=== PATIENT | female | born 1970 | race Caucasian/White ===

== ENCOUNTER 2020-03-19 16:51 | Observation (INO) | payer OTHER, SELFPAY ==
[2020-03-19] VITALS (13 sets, daily range): BP systolic 99–139; BP diastolic 66–88; PULSE 72–98; RESP 15–18; TEMP 36.4–37.1; O2SAT 98–100; BMI 24.3
--- NOTE | ~2020-03-19 | XR_ITS ---
EXAMINATION: XR chest 1V portable DATE: 03/19/2020 17:30 INDICATION: Shortness of breath. Left-sided chest pressure. TECHNIQUE: frontal view of the chest was obtained. COMPARISON: None FINDINGS: The lungs are clear with no focal airspace opacities, pulmonary edema, pleural effusion or pneumothor ax. The cardiomediastinal silhouette is normal. Mild thoracic dextrocurvature. IMPRESSION: 1. No acute cardiopulmonary disease. Reviewed, dictated and finalized at location A.
--- NOTE | 2020-03-19 16:53 | ECG_ITS ---
Measurements Intervals [place] Rate: 88 P: 49 [place]: 126 QRS: 9 QRSD: 82 T: 38 QT: 348 QTc: 423 Interpretive Statements SINUS RHYTHM RSR' IN V1 OR V2, CONSIDER RIGHT VENTRICULAR HYPERTROPHY OR RIGHT VCD LOW QRS VOLTAGE IN PRECORDIAL LEADS BASELINE ARTIFACT- I, III, AVR, AVL, AVF, V1 BORDERLINE ECG Electronically Signed On 03-19-2020 17:23:24 CDT by Markus Figueroa D.O.
--- NOTE | 2020-03-19 17:03 | ED.CHESTPAIN ---
HPI - Chest Pain General Chief Complaint: Chest Pain <Nicholas Aguirre PA-C - Last Filed: 03/19/20 20:02> Stated Complaint: sob, cp <Nicholas Aguirre PA-C - Last Filed: 03/19/20 20:02> Time Seen by Provider: 03/19/20 16:52 <Nicholas Aguirre PA-C - Last Filed: 03/19/20 20:02> Source: patient and family <Nicholas Aguirre PA-C - Last Filed: 03/19/20 20:02> Mode of arrival: ambulatory <Nicholas Aguirre PA-C - Last Filed: 03/19/20 20:02> Limitations: no limitations <Nicholas Aguirre PA-C - Last Filed: 03/19/20 20:02> History of Present Illness HPI narrative: Patient is a 50-year-old female who presents with 1 month of worsening exertional dyspnea patient notes over the last several days her symptoms have worsened feeling fatigued when going short distances and upstairs patient also notes for the last 2 hours having developed some left-sided chest heaviness. Patient denies similar occurrence in the past presents per private vehicle. Patient denies any current pain has not taken anything for her symptoms. Patient denies any recent illness URI symptoms. On arrival patient in the room in no distress <Nicholas Aguirre PA-C - Last Filed: 03/19/20 20:02> Related Data Home Medications: Home Medications Medication Instructions Recorded Confirmed amitriptyline 10 mg PO HS 03/19/20 <Nicholas Aguirre PA-C - Last Filed: 03/19/20 20:02> Allergies/Adverse Reactions: Allergies Allergy/AdvReac Type Severity Reaction Status Date / Time No Known Allergies Allergy Unverified 03/19/20 17:00 <Nicholas Aguirre PA-C - Last Filed: 03/19/20 20:02> Review of Systems Review of Systems: All systems reviewed & are unremarkable except as noted in HPI and below <Nicholas Aguirre PA-C - Last Filed: 03/19/20 20:02> PMFSH Past Medical History Medical History: Medical History (Updated 03/19/20 @ 20:02 by Nicholas Aguirre PA-C) Depression <Nicholas Aguirre PA-C - Last Filed: 06/19/20 20:02> Family History Family History: Family History Father Hypertension Cerebrovascular accident Family history of diabetes mellitus in first degree relative Family history of dementia Family history of coronary artery disease Mother Family history of coronary artery disease Other Diabetes mellitus Family history of arthritis <Nicholas Aguirre PA-C - Last Filed: 03/19/20 20:02> Social History Social History: Social History Smoking status: Never smoker Alcohol intake: never Gender identity (if verbalized by the patient): Female <Nicholas Aguirre PA-C - Last Filed: 03/19/20 20:02> Exam Narrative: Exam Narrative: GENERAL: Well-appearing, well-nourished, and in no acute distress. HEAD: Normocephalic, atraumatic. EYES: PERRLA and EOMI. ENT: Nares clear, no rhinorrhea or epistaxis. Mucous membranes moist. CHEST: Clear to auscultation. No respiratory distress. No wheezes rales or rhonchi HEART: Regular rate and rhythm. No murmur heard. Normal peripheral pulses. ABDOMEN: Soft, nontender, nondistended. EXTREMITIES: Normal range of motion. No edema. SKIN: Warm, dry, no rash. NEURO: No focal deficits. Alert and oriented x3. PSYCH: Normal mood and affect. <Nicholas Aguirre PA-C - Last Filed: 03/19/20 20:02> Course Course Emergency Course: For this encounter, I have reviewed the PA documentation, treatment plan and medical decision making: And I have had [id number] time with the patient. Had lengthy discussion with patient and spouse regarding concerns of symptoms. Discussed recommendations for admission. Numerous questions answered this time patient and family agree with admission <Jeronimo Cao DO - Last Filed: 03/19/20 19:24> Consultations Consultation #1: Discussed case with cardiology who will place patient in hos
[2020-03-19 17:12] LABS: Basophils Percent Auto 0.6 % (0.2-1.2); Eosinophils Absolute Auto 0.1 K/mm3 (0-0.3); Eosinophils Percent Auto 1.2 % (0-4.4); Hematocrit 45.4 % (37.0-47.0); Hemoglobin 15.1 g/dL (12.0-15.0); Immature Granulocyte Absolute 0.01 K/mm3 (0.00-0.031); Immature Granulocyte Percent A 0.2 % (0-0.5); Lymphocytes Absolute Auto 2.15 K/mm3 (0.9-3.2); Lymphocytes Percent Auto 33.5 % (18.3-44.2); Mean Corpuscular HGB Conc 33.3 g/dl (32-36); Mean Corpuscular Hemoglobin 29.8 pg (26-34); Mean Corpuscular Volume 89.5 fl (80-100); Mean Platelet Volume 10.2 fl (7.4-10.4); Monocytes Absolute Auto 0.6 K/mm3 (0.1-0.6); Monocytes Percent Auto 8.6 % (2.6-8.5); Neutrophils Absolute Auto 3.6 K/mm3 (1.3-6.7); Neutrophils Percent Auto 55.9 % (45.5-73.1); Platelet Count Result 229 k/mm3 (150-375); Red Blood Count 5.07 M/mm3 (4.2-5.4); White Blood Count 6.4 K/mm3 (4.5-10.0)
[2020-03-19] MEDS: ASPIRIN 81 MG CHEWABLE TABLET 324 MG PO (17:14)
[2020-03-19] MEDS: NITROGLYCERIN SL 0.4 MG TABLET SUBLINGUAL (17:15)
[2020-03-19] MEDS: SODIUM CHLORIDE 0.9% IV 500 ML 999 ML IV CONT (17:15)
--- NOTE | 2020-03-19 17:15 | PC.NURSE ---
Pt given 1st SL nitro tab, rates pain 5/10 currently.
[2020-03-19 17:21] LABS: Prothrombin Time 12.5 Seconds (11.1-14.7)
[2020-03-19 17:22] LABS: Partial Thromboplastin Time 29.5 SECONDS (22.3-36.8)
[2020-03-19 17:25] LABS: Add Urine Microscopic? NO; Appearance Urine Clear (Clear); Bilirubin Urine Negative (Negative); Blood Urine Negative (Negative); Color Urine Colorless (Yellow); Glucose Urine UA Negative (Negative); Ketones Urine Negative (Negative); Leukocyte Esterase Ur Negative LEU/UL (Negative); Nitrate Urine Negative (Negative); Protein Urine Negative (Negative); Specific Grav Ur 1.012 (1.001-1.035); Urobilinogen Urine Negative mg/dL (<2.0)
--- NOTE | 2020-03-19 17:26 | PC.NURSE ---
2nd dose of Nitro was given to pt. Vitals were stable when given
[2020-03-19 17:27] LABS: D Dimer 0.27 ug/mL (<0.48)
[2020-03-19 17:37] LABS: Amphetamine Screen Urine Negative (Negative); Barbiturate Screen Urine Positive (Negative); Benzodiazepines Screen Urine Negative (Negative); Cannabinoid Screen Urine Negative (Negative); Cocaine Screen Urine Negative (Negative); Methadone Screen Urine Negative (Negative); Opiate Screen Urine Negative (Negative); Phencyclidine Screen Urine Negative (Negative)
[2020-03-19 18:02] LABS: Alanine Aminotransferase 19 U/L (4-35); Albumin Level 4.6 g/dL (3.5-5.1); Alkaline Phosphatase 60 U/L (38-126); Aspartate Amino Transferase 30 U/L (14-36); Bilirubin,Total 0.3 mg/dL (0.2-1.3); Blood Urea Nitrogen 17 mg/dL (7-17); Carbon Dioxide 23 mmol/L (22-30); Chloride 106 mmol/L (98-107); Estimated CRCL calculation 64 ml/min; Estimated Glomerular Filt Rate > 60; Glucose 101 mg/dL (65-105); Potassium 4.2 mmol/L (3.4-5.0); Sodium 138 mmol/L (137-145)
[2020-03-19 18:13] LABS: NT Pro B Type Natriuretic Pept 79 PG/ML (5-100); Troponin I < 0.012 ng/mL (0.000-0.034)
[2020-03-19 20:53] LABS: Cholesterol 182 mg/dL (0-200); HDL Direct 65 mg/dL; Triglycerides 49 mg/dL (<150)
[2020-03-19 20:54] LABS: Troponin I < 0.012 ng/mL (0.000-0.034)
[2020-03-19 21:04] LABS: LDL Cholesterol Direct 91 mg/dL
--- NOTE | 2020-03-19 21:34 | ADMGEN ---
This patient, Louise Estrada, was admitted to IMU Room 201-01 on 03/19/20 at 2105. Patient/family oriented to hospital policies and general routines including ID bracelet, bed and alarms, visiting hours, pain management, procedures, bathroom and other care routines, personal items, smoking policy, room service/diet, and visiting hours. Valuables list has been completed. Information on how to activate the Rapid Response Team has been discussed. Patient/Family are encouraged to report perceived risks to care and to ask questions if they do not understand what they are told or what they should do.
[2020-03-19] MEDS: MELATONIN 5 MG TABLET PO (23:10)
[2020-03-19] MEDS: AMITRIPTYLINE HCL 10 MG TABLET PO (23:10)
[2020-03-20] VITALS: PULSE 65
--- NOTE | 2020-03-20 01:03 | PC.NURSE ---
03/19/20 2337- Pt is refusing to have her 6 hour troponin drawn by lab. Pt states that she does not feel like she needs to be stuck again since her first two troponin results were negative. Pt educated on the importance of following through with the prescribed MD orders. Pt states understanding and still wishes to refuse the blood draw. Will continue to monitor patient closely.
[2020-03-20 01:58] VITALS: PULSE 61
[2020-03-20 04:00] VITALS: BP 107/72; PULSE 63; PULSE 75; RESP 19; TEMP 36.6; O2SAT 100
[2020-03-20 06:00] VITALS: PULSE 60
--- NOTE | 2020-03-20 07:52 | ECG_ITS ---
Measurements Intervals [place] Rate: 75 P: 46 [place]: 130 QRS: -2 QRSD: 84 T: 37 QT: 380 QTc: 425 Interpretive Statements SINUS RHYTHM LOW QRS VOLTAGE IN PRECORDIAL LEADS BASELINE ARTIFACT- I, II, AVR, AVL, V1 BORDERLINE ECG Electronically Signed On 03-20-2020 11:25:31 CDT by Markus Figueroa D.O.
[2020-03-20 08:00] VITALS: BP 109/75; PULSE 82; PULSE 93; RESP 16; TEMP 35.6; O2SAT 100
[2020-03-20] MEDS: ASPIRIN 81 MG CHEWABLE TABLET PO (08:21)
[2020-03-20 08:53] LABS: Troponin I < 0.012 ng/mL (0.000-0.034)
--- NOTE | 2020-03-20 09:32 | PM.SD ---
Same Day Admit/Disch: HPI History of Present Illness Chief complaint: chest pain Narrative: Louise Estrada is a 50 year old female presented with 2 to 3 weeks of SOB that has been worse on when she got SOB when was taking 6 flights of stairs. She had been physically active before and was able to run 4 miles 2 times per week but has not been exercising lately. She has no SOB at rest and no associated chest pain or dizziness or palpitations. There is no cough or fevers. No new medications. yesterday she had episode of chest pressure that was left sided non radiating, lasted for hours and resolved spontaneously, no precipitating factors and no associated dizziness or sweating or nausea. This morning she feels better and wants to go home. Last night she refused 3rd set of enzymes but agreeable to do it now. She wants to complete her work up as outpatient. [facility] Past Medical History Medical History (Updated 03/19/20 @ 20:02 by Nicholas Aguirre PA-C) Depression Family History Family History (Updated 03/19/20 @ 21:27 by Abby Wilson RN) Father Family history of diabetes mellitus in first degree relative Family history of coronary artery disease Family history of dementia Hypertension Cerebrovascular accident Diabetes mellitus Hyperlipidemia Mother Atrial fibrillation Family history of coronary artery disease Congestive heart failure Family history of arthritis Hyperlipidemia Sibling Hyperlipidemia Social History Social History Smoking status: Never smoker Alcohol intake: never Substance use: never Substance use type: does not use Gender identity (if verbalized by the patient): Female Sexual Orientation (if Verbalized by the Patient): Straight or Heterosexual Spiritual care concerns: No Same Day Admit/Disch: Med Pre-admit Medications Home Medications Medication Instructions Recorded Confirmed Type L. gasseri-B. bifidum-B longum 1 cap PO HS 03/19/20 03/19/20 History [[facility]] amitriptyline 10 mg PO HS 03/19/20 03/19/20 History gpzppxdkwd-fjgzzcptbazyf-vwoz 1 - 2 cap PO Q4H PRN 03/19/20 03/19/20 History cyclobenzaprine 10 mg PO TID PRN 03/19/20 03/19/20 History melatonin 5 mg PO HS 03/19/20 03/19/20 History Exam Const: General: comfortable and no acute distress Other: Able to lie flat HENMT: General nose exam: Normal nares present and no epistaxis Mouth: Yes moist mucous membranes Eyes: Sclera: sclerae normal Pupils: Equal, round and reactive pupils present Neck: Neck: supple and no JVD Carotids: no bruits Resp: Auscultation: clear to auscultation bilaterally and lung sounds not diminished Other: No chest wall tenderness Cardio: Rate: regular rate Rhythm: regular rhythm Heart sounds: no gallops, no murmurs and no rubs GI: GI Palp: Yes Soft to palpation and No Tenderness to palpation present (GI) Auscultation: normal bowel sounds Skin: General skin exam: normal color, rashes and/or lesions noted and no erythema Other: Warm Neuro: Cranial nerves: Yes Equal, round and reactive pupils present Cognition (Neuro): normal cognition Speech: normal speech Other: No obvious focal deficit or facial asymmetry Extrem: General: no edema Right upper extremity: normal capillary refill Left upper extremity: normal capillary refill Other: Normal capillary refills Intact distal pulses. Psych: Mental Status: mental status grossly normal Affect: Anxious affect present DS: Data Data Completed and Pending Labs on day of discharge: Labs from last 24 hours 03/20/20 03/20/20 03/19/20 08:14 08:14 23:37 WBC RBC Hgb Hct MCV MCH MCHC RDW Plt Count MPV Immature Gran % (Auto) Neut % (Auto) Lymph % (Auto) [place] % (Auto) Eos % (Auto) Baso % (Auto) Lymph # (Auto) [place] # (Auto) Eos # (Auto) Baso # (Auto) Abs Immat Gran (aut
[2020-03-20 13:20] LABS: SARS-CoV-2 RNA PCR Negative
== END 2020-03-20 10:55 | disposition home or self-care (01) ==
LOC: ANHED 20:29 → ANHIMU 20:49
PROVIDERS: Emergency Medicine Emergency Medical Services; Admitting Provider Internal Medicine Cardiovascular Disease; Emergency Provider Emergency Medicine; PCP Family Medicine; Visit Provider Internal Medicine Interventional Cardiology
DX: R07.89 Other chest pain (principal); Z11.59 Encounter for screening for other viral diseases; Z79.899 Other long term (current) drug therapy
CPT/HCPCS: 36415; 71045; 80053; 80061; 80307; 81003; 83880; 84443; 84484; 85025; 85380; 85610; 85730; 87635; 93005; 96360; 99285; A9270; C9803; G0378; J7040; U0003

== ENCOUNTER 2020-09-16 15:10 | Outpatient (CLI) | payer OTHER, SELFPAY ==
--- NOTE | ~2020-09-16 | MM_ITS ---
EXAMINATION: MM screening [place] BI w shade HISTORY: Screening mammogram TECHNIQUE: Craniocaudal and mediolateral oblique 3-D tomosynthesis images were obtained and synthetic 2-D images were generated. CAD analysis was submitted and interpreted. COMPARISON: 04/16/2018, 03/14/2017, 12/07/2015 BREAST PARENCHYMAL COMPOSITION: The breasts are heterogeneously dense, which may obscure small masses . FINDINGS: Scattered benign-appearing calcifications are present. There is no evidence of suspicious m ass, calcification, or architectural distortion to suggest malignancy in either breast. There has bee n no suspicious interval change. IMPRESSION: 1. No mammographic evidence of malignancy. 2. Recommend routine screening mammography in one year. BI-RADS Category 2: Benign finding(s). Reviewed, dictated and finalized at location A. WILLOW ANALYST
== END 2020-09-16 15:11 | disposition home or self-care (01) ==
PROVIDERS: PCP Family Medicine; Visit Provider Obstetrics & Gynecology
DX: Z12.31 Encounter for screening mammogram for malignant neoplasm of breast (principal)
CPT/HCPCS: 77063; 77067

== ENCOUNTER → 2021-05-26 08:20 | Outpatient (CLI) | payer OTHER, SELFPAY ==
--- NOTE | ~2021-05-26 | XR_ITS ---
EXAMINATION: XR_[id number]_CR EXAM DATE: 05/26/2021 08:53 INDICATION: LT side neck pain C5-T1, radiates down LT arm. Pain and numbness in Lt 4th and 5th digit . x weeks. no inj. no surg. TECHNIQUE: Cervical spine frontal, lateral, lateral swimmers, and open-mouth odontoid projections. C omparison is made to prior examination from 01/12/2016. FINDINGS: There is mild loss of the C5-6 disc height. The vertebral body and disc heights are otherw ise well maintained. Evidence of mild cervical arthropathy. The vertebral bodies are aligned in the A P dimension. Prevertebral soft tissue and pre-dens space are within normal limits. The odontoid proce ss is intact. The lateral masses of C1 line up with C2. Lung apices unremarkable. IMPRESSION: Mild cervical spondylosis. Reviewed, dictated and finalized at location A. IMPRESSION: Mild cervical spondylosis.
== END ==
PROVIDERS: PCP Nurse Practitioner Family; Visit Provider Nurse Practitioner Family
DX: M47.812 Spondylosis without myelopathy or radiculopathy, cervical region (principal)
CPT/HCPCS: 72040

== ENCOUNTER 2021-08-31 07:59 | Outpatient (CLI) | payer OTHER, SELFPAY ==
--- NOTE | ~2021-08-31 | MR_ITS ---
EXAMINATION: MR cervical spine wo con EXAM DATE: 08/31/2021 09:01 INDICATION: M54.2 - Cervicalgia . Neck and left shoulder pain. TECHNIQUE: Multi-sequential, multiplanar MR images of the cervical spine were obtained without contra st. Axial T2, axial T2 MERGE sequence. Sagittal T1, T2, T2 fat saturation images also obtained. Th ere is no prior study for comparison. FINDINGS: There is mild loss of the C5-6 disc height. The vertebral body and disc heights are otherw ise well maintained. The vertebral bodies are aligned in the AP dimension. There are no suspicious ma rrow signal abnormalities. The spinal cord signal intensity and intrinsic morphology is normal. There are no suspicious marrow signal abnormalities. Paraspinal soft tissue is unremarkable. Level by level evaluation: C2-C3: Disc does not extend beyond the endplate margin. Uncovertebral joint arthropathy: None. Facet joint arthropathy: Mild bilateral. Neural foraminal stenosis: No stenosis. Central canal stenosis: No stenosis. C3-C4: Disc does not extend beyond the endplate margin. Uncovertebral joint arthropathy: Mild bilateral. Facet joint arthropathy: Mild to moderate bilateral. Neural foraminal stenosis: No stenosis. Central canal stenosis: No stenosis. C4-C5: Disc does not extend beyond the endplate margin. Uncovertebral joint arthropathy: Mild bilateral. Facet joint arthropathy: Moderate left, mild to moderate right. Neural foraminal stenosis: No stenosis. Central canal stenosis: No stenosis. C5-C6: There is a mild diffuse disc bulge. Uncovertebral joint arthropathy: Moderate to severe left, moderate right. Facet joint arthropathy: Moderate left, mild to moderate right. Neural foraminal stenosis: Moderate to severe left, mild right. Central canal stenosis: Mild. C6-C7: There is a mild diffuse disc bulge. Uncovertebral joint arthropathy: Mild to moderate bilateral. Facet joint arthropathy: Mild bilateral. Neural foraminal stenosis: No stenosis. Central canal stenosis: No stenosis. C7-T1: Disc does not extend beyond the endplate margin. Uncovertebral joint arthropathy: None. Facet joint arthropathy: Moderate right, mild left. Neural foraminal stenosis: No stenosis. Central canal stenosis: No stenosis. IMPRESSION: 1. C5-6 moderate to severe left neural foraminal stenosis. Reviewed, dictated and finalized at location A. LIFT COMPRESSER
== END 2021-08-31 08:00 | disposition home or self-care (01) ==
LOC: ANHIMG 07:59
PROVIDERS: PCP Family Medicine; Visit Provider Nurse Practitioner Family
DX: M47.23 Other spondylosis with radiculopathy, cervicothoracic region (principal); M48.03 Spinal stenosis, cervicothoracic region
CPT/HCPCS: 72141

== ENCOUNTER → 2021-09-05 14:01 | Outpatient (REF) | payer OTHER, SELFPAY | LOC: ANHLAB 14:01 | PROVIDERS: PCP Family Medicine; Visit Provider Nurse Practitioner | DX: D22.5 Melanocytic nevi of trunk (principal) | CPT/HCPCS: 88305 ==

== ENCOUNTER 2021-10-20 15:43 | Outpatient (CLI) | payer OTHER, SELFPAY ==
--- NOTE | ~2021-10-20 | MM_ITS ---
EXAMINATION: MM screening [place] BI w shade HISTORY: Screening TECHNIQUE: Craniocaudal and mediolateral oblique 3-D tomosynthesis images were obtained and synthetic 2-D images were generated. CAD analysis was submitted and interpreted. COMPARISON: Comparison to multiple prior studies sequentially, with oldest reviewed study dated 10/13. BREAST PARENCHYMAL COMPOSITION: The breasts are extremely dense, which lowers the sensitivity of mamm ography FINDINGS: There is no evidence of suspicious mass, calcification, or architectural distortion to sugg est malignancy in either breast. There has been no suspicious interval change. IMPRESSION: 1. No mammographic evidence of malignancy. 2. Recommend routine screening mammography in one year. BI-RADS Category 1: Negative2 Reviewed, dictated and finalized at location A. ERS' COMPENSATION COMMISSIONER
== END 2021-10-20 15:44 | disposition home or self-care (01) ==
LOC: ANHIMG 15:45
PROVIDERS: PCP Family Medicine; Visit Provider Obstetrics & Gynecology
DX: Z12.31 Encounter for screening mammogram for malignant neoplasm of breast (principal)
CPT/HCPCS: 77063; 77067

== ENCOUNTER 2021-12-22 13:47 | Outpatient (CLI) | payer OTHER, SELFPAY ==
[2021-12-22 14:18] LABS: Basophils Percent Auto 0.7 % (0.2-1.2); Eosinophils Absolute Auto 0.1 K/mm3 (0-0.3); Eosinophils Percent Auto 2.4 % (0-4.4); Hemoglobin 15.1 g/dL (12.0-15.0); Immature Granulocyte Absolute 0.02 K/mm3 (0.00-0.031); Immature Granulocyte Percent A 0.3 % (0-0.5); Lymphocytes Absolute Auto 1.86 K/mm3 (0.9-3.2); Lymphocytes Percent Auto 31.7 % (18.3-44.2); Mean Corpuscular HGB Conc 32.8 g/dl (32-36); Mean Corpuscular Volume 91.3 fl (80-100); Mean Platelet Volume 9.6 fl (7.4-10.4); Monocytes Absolute Auto 0.5 K/mm3 (0.1-0.6); Monocytes Percent Auto 8.9 % (2.6-8.5); Neutrophils Absolute Auto 3.3 K/mm3 (1.3-6.7); Platelet Count Result 263 k/mm3 (150-375); Red Blood Count 5.04 M/mm3 (4.2-5.4); Red Cell Distribution Width 13.1 % (11.5-14.5); White Blood Count 5.9 K/mm3 (4.5-10.0)
[2021-12-22 14:22] LABS: Add Urine Microscopic? YES; Appearance Urine Cloudy (Clear); Bacteria Urine Trace /hpf; Bilirubin Urine Negative (Negative); Blood Urine Negative (Negative); Color Urine Yellow (Yellow); Glucose Urine UA Negative (Negative); Ketones Urine Negative (Negative); Leukocyte Esterase Ur Negative LEU/UL (NEGATIVE); Nitrate Urine Negative (Negative); Protein Urine Negative (Negative); RBC Urine 0-2 /hpf (0-2); Specific Grav Ur 1.013 (1.001-1.035); Squamous Epithelial Cell Urine Few /hpf (Few); Urobilinogen Urine Negative mg/dL (<2.0); WBC Urine 0-3 /hpf (0-3)
[2021-12-22 14:53] LABS: Vitamin D 25 Hydroxy 57.1 ng/mL
[2021-12-22 16:43] LABS: Alanine Aminotransferase 26 U/L (4-35); Albumin Level 4.8 g/dL (3.5-5.1); Alkaline Phosphatase 69 U/L (38-126); Anion Gap 8 mmol/L (8-16); Aspartate Amino Transferase 29 U/L (14-36); Bilirubin,Total 0.2 mg/dL (0.2-1.3); Blood Urea Nitrogen 16 mg/dL (7-17); Calcium 9.3 mg/dL (8.4-10.2); Carbon Dioxide 28 mmol/L (22-30); Chloride 101 mmol/L (98-107); Estimated Glomerular Filt Rate > 60; Glucose 92 mg/dL (65-110); Potassium 4.1 mmol/L (3.4-5.0); Sodium 137 mmol/L (137-145)
[2021-12-27 12:40] LABS: Anti Nuclear Antibody Pattern Nuclear, Speckled; Anti Nuclear Antibody Titer 1:40 (Negative)
== END 2021-12-22 13:48 | disposition home or self-care (01) ==
PROVIDERS: PCP Family Medicine; Visit Provider Nurse Practitioner Family
DX: Z00.00 Encounter for general adult medical examination without abnormal findings (principal); R53.83 Other fatigue; R06.02 Shortness of breath; R07.9 Chest pain, unspecified; N39.0 Urinary tract infection, site not specified
CPT/HCPCS: 36415; 80053; 81001; 82306; 82607; 84443; 85025; 86038; 86039

== ENCOUNTER 2022-01-17 08:03 | Outpatient (CLI) | payer OTHER, SELFPAY ==
--- NOTE | 2022-01-23 15:11 | WPDPFTINT ---
PFT Procedure Performed PFT Procedure Performed Spirometry with Pre/Post Bronchodilator Plethysmography (Lung Vol) Diffusing Cap (DLCO) Flow Vol Loop PFT Interpretation DOS: 01/17/2022 REQUESTING: Dr Leandra Kevin REASON FOR TESTING: Shortness of breath PULMONARY FUNCTION TESTS Results are reliable and reproducible. Spirometry: The pre-bronchodilator FEV1 is 115% predicted, 3.16 L, normal. The pre-bronchodilator FVC is 111%, 3.82 L, normal. The FEV1/FVC ratio is normal 83%. There is no change after bronchodilator administration. Lung volumes: The total lung capacity is 104%, normal, 5.26 L. Residual volume is 78% predicted, normal. The RV/TLC ratio is 27%, in the normal range. Diffusion: DLCO is 107%, normal. Flow volume loop: Normal. IMPRESSION: This full PFT with bronchodilator administration shows normal spirometry, normal lung volumes, normal diffusion capacity and normal airway resistance. Lack of response to bronchodilator should not preclude use if clinically indicated. Elva Weston MD
== END 2022-01-17 08:04 | disposition home or self-care (01) ==
LOC: ANHPFT 08:04
PROVIDERS: PCP Family Medicine; Visit Provider Nurse Practitioner Family
DX: R06.02 Shortness of breath (principal)
CPT/HCPCS: 94060; 94726; 94729

== ENCOUNTER 2023-01-27 07:24 | Outpatient (CLI) | payer OTHER, SELFPAY ==
--- NOTE | ~2023-01-27 | MM_ITS ---
EXAMINATION: MM screening [place] BI w shade HISTORY: Screening mammogram TECHNIQUE: Craniocaudal and mediolateral oblique 3-D tomosynthesis images were obtained and synthetic 2-D images were generated. CAD analysis was submitted and interpreted. COMPARISON: 10/20/2021, 09/16/2020, 04/16/2018 BREAST PARENCHYMAL COMPOSITION: The breasts are heterogeneously dense, which may obscure small masses . FINDINGS: Scattered benign-appearing calcifications are present. No suspicious mass, calcification, o r architectural distortion are identified in either breast to suggest malignancy. There has been no s uspicious interval change. IMPRESSION: 1. No mammographic evidence of malignancy. 2. Recommend routine screening mammography in one year. BI-RADS Category 2: Benign finding(s). Reviewed, dictated and finalized at location A.
== END 2023-01-27 07:25 | disposition home or self-care (01) ==
LOC: ANHIMG 07:26
PROVIDERS: PCP Family Medicine; Visit Provider Obstetrics & Gynecology
DX: Z12.31 Encounter for screening mammogram for malignant neoplasm of breast (principal)
CPT/HCPCS: 77063; 77067

== ENCOUNTER 2023-03-01 10:39 | Outpatient (NON) | payer OTHER, SELFPAY | END 2023-03-01 10:40 | disposition home or self-care (01) | LOC: ANHLAB 03-02 10:40 | PROVIDERS: PCP Family Medicine; Visit Provider Nurse Practitioner | DX: D49.2 Neoplasm of unspecified behavior of bone, soft tissue, and skin (principal) | CPT/HCPCS: 88305 ==

== ENCOUNTER 2024-08-07 15:25 | Outpatient (CLI) | payer OTHER, SELFPAY ==
--- NOTE | ~2024-08-07 | MM_ITS ---
EXAMINATION: MM screening [place] BI w shade HISTORY: Screening TECHNIQUE: Craniocaudal and mediolateral oblique 3-D tomosynthesis images were obtained and synthetic 2-D images were generated. CAD analysis was submitted and interpreted. COMPARISON: Comparison to multiple prior studies sequentially, with oldest reviewed study dated 05/2016. BREAST PARENCHYMAL COMPOSITION: Dense: The breasts are extremely dense, which lowers the sensitivity of mammography. FINDINGS: There is no evidence of suspicious mass, calcification, or architectural distortion to sugg est malignancy in either breast. There has been no suspicious interval change. IMPRESSION: 1. No mammographic evidence of malignancy. 2. Recommend routine screening mammography in one year. BI-RADS Category 1: Negative Reviewed, dictated and finalized at location B. NOMIST
== END 2024-08-07 15:26 | disposition home or self-care (01) ==
LOC: MICIMG 15:26
PROVIDERS: PCP Family Medicine; Visit Provider Obstetrics & Gynecology
DX: Z12.31 Encounter for screening mammogram for malignant neoplasm of breast (principal)
CPT/HCPCS: 77063; 77067